=== PATIENT | male | born 1995 | race Caucasian/White ===

== ENCOUNTER 2018-10-24 14:58 | Emergency (ER) | payer SELFPAY ==
[~2018-10-24] VITALS: Ht 180.3 cm; Wt 109.0 kg
[2018-10-24 15:31] VITALS: BP 137/94
== END 2018-10-24 21:30 | disposition left against medical advice (07) ==
LOC: ER 14:58
DX: S61.213A Laceration without foreign body of left middle finger without damage to nail, initial encounter (principal); W45.8XXA Other foreign body or object entering through skin, initial encounter; Y93.89 Activity, other specified; Y92.89 Other specified places as the place of occurrence of the external cause; Y99.8 Other external cause status; Z53.21 Procedure and treatment not carried out due to patient leaving prior to being seen by health care provider